=== PATIENT | male | born 1930 | race Caucasian/White ===

== ENCOUNTER 2016-08-06 16:14 | Emergency (ER) | payer OTHER ==
[~2016-08-06] VITALS: Ht 167.6 cm; Wt 56.0 kg
[2016-08-06 16:17] VITALS: BP 168/110; PULSE 78; RESP 14; TEMP 98.4; O2SAT 95
[2016-08-06 16:29] VITALS: BP_SYST 121; BP_DIAS 29; BP_DIAS 59; PULSE 68; O2SAT 95
[2016-08-06] MEDS ORDERED: AMLO5TAB2 PO (16:48)
[2016-08-06] MEDS ORDERED: PRED50 PO (16:48)
--- NOTE | 2016-08-06 16:56 | PD ---
HPI Chief Complaint: Altered Mental Status Time Seen by Provider: 16:34 Travel History International Travel<30 days: No Contact w/Intl Traveler<30days: No Traveled to known affect area: No History of Present Illness HPI This patient was sent here from his primary physician's office. He says that 6 weeks ago he had some lightheadedness. Coupled with recent thrombocytopenia he had a brain CT that was done somewhere in [place]. He says it showed a tiny little abnormal suspect that didn't boot turner to be anything problematic but they requested a routine brain CT in 6 weeks which happened today. Strangely enough, despite no symptoms, he has a acute/subacute subdural hemorrhage measuring up to 12 mm in the parietal region without midline shift. He denies head injury or headache. He takes no blood thinners. Of note though he has had platelet count as low as 15,000 recently. He is on prednisone for that problem followed by shaft sinker. Severity is mild. No alleviating factors. Duration one day PFSH Social History Alcohol Use: No Tobacco Use: No Substance Use: No Allergies-Medications (Allergen,Severity, Reaction): Coded Allergies: No Known Allergies (Unverified , 08/06/16) Reported Meds & Prescriptions Reported Meds & Active Scripts Active Reported Prednisone 50 Mg Tab 60 Mg PO DAILY Amlodipine (Amlodipine Besylate) 5 Mg Tab 5 Mg PO BID Review of Systems General / Constitutional: No: Fever Eyes: No: Visual changes HENT: No: Headaches Cardiovascular: No: Chest Pain or Discomfort Respiratory: No: Shortness of Breath Gastrointestinal: No: Abdominal Pain Genitourinary: No: Dysuria Musculoskeletal: No: Pain Skin: No Rash Neurologic: No: Weakness Psychiatric: No: Depression Endocrine: No: Polydipsia Hematologic/Lymphatic: No: Easy Bruising Physical Exam Narrative GENERAL: Well-nourished, well-developed patient in no apparent distress. SKIN: Focused skin assessment reveals no rash and nodules. Skin is Warm and dry. HEAD: Atraumatic. Normocephalic. EYES: Pupils equal and round. No scleral icterus. No injection or drainage. ENT: No nasal bleeding or discharge. Mucous membranes pink and moist. NECK: Trachea midline. No JVD. CARDIOVASCULAR: Regular rate and rhythm. No murmur appreciated. RESPIRATORY: No accessory muscle use. Clear to auscultation. Breath sounds equal bilaterally. GASTROINTESTINAL: Abdomen soft, non-tender, nondistended. Hepatic and splenic margins not palpable. MUSCULOSKELETAL: No obvious deformities. No clubbing. No cyanosis. No edema. NEUROLOGICAL: Awake and alert. No obvious cranial nerve deficits. Motor grossly within normal limits. Normal speech. PSYCHIATRIC: Appropriate mood and affect; insight and judgment normal. Data Data Last Documented VS Vital Signs Date Time Temp Pulse Resp B/P Pulse Ox O2 Delivery O2 Flow Rate FiO2 08/06/16 18:04 75 128/58 94 Room Air 08/06/16 16:17 98.4 14 Orders Iv Access Insert/Monitor (08/06/16 16:46) Complete Blood Count With Diff (08/06/16 16:46) Basic Metabolic Panel (Bmp) (08/06/16 16:46) Prothrombin Time / Inr (Pt) (08/06/16 16:46) Act Partial Throm Time (Ptt) (08/06/16 16:46) Plush Cutter / Telemetry VEENA.Q8H (08/06/16 16:46) Labs Laboratory Tests Test 08/06/16 16:58 White Blood Count 7.3 TH/MM3 Red Blood Count 3.71 MIL/MM3 Hemoglobin 11.6 GM/DL Hematocrit 35.5 % Mean Corpuscular Volume 95.6 FL Mean Corpuscular Hemoglobin 31.3 PG Mean Corpuscular Hemoglobin 32.7 % Concent Red Cell Distribution Width 14.8 % Platelet Count 136 TH/MM3 Mean Platelet Volume 8.6 FL Neutrophils (%) (Auto) 90.7 % Lymphocytes (%) (Auto) 6.1 % Monocytes (%) (Auto) 3.0 % Eosinophils (%) (Auto) 0.1 % Basophils (%) (Auto) 0.1 % Neutrophils # (Auto) 6.6 TH/MM3 Lymphocytes # (Auto) 0.4 TH/MM3 Monocytes # (Auto) 0.2 TH/MM3 Eosinophils # (Auto) 0.0 TH/MM3 Basophils # (Auto) 0.0 TH/MM3 CBC Comment DIFF FINAL Differential Comment Prothrombin Time 11.9 SEC Prothromb Time International 1.1 RATIO Ratio Activated Partial 24.4 SEC Thromboplast Time Sodium Level 140 MEQ/L Potassium Level 4.5 MEQ/L Chloride Level 106 MEQ/L Carbon Dioxide Level 25.8 MEQ/L Anion Gap 8 MEQ/L Blood Urea Nitrogen 24 MG/DL Creatinine 1.03 MG/DL Estimat Glomerular Filtration 69 ML/MIN Rate Random Glucose 101 MG/DL Calcium Level 8.6 MG/DL MDM Medical Decision Making Medical Screen Exam Complete: Yes Emergency Medical Condition: Yes Medical Record Reviewed: Yes Differential Diagnosis Intracranial hemorrhage, thrombocytopenia, ITP Narrative Course I have reviewed the patient's electronic medical record. I reviewed his brain CT from outpatient done today at [facility] IV placed Extended cardiac monitoring reveals sinus rhythm without ectopy CBC shows a platelet count is 136,000 which is very good for this patient according to him. There are no prior lab studies to compare Metabolic profile is normal Coagulation studies are normal I reviewed the case in detail with Dr. Smith who has reviewed the images. He recommends discharge home and will see the patient in his office for a follow- up. There is nothing surgical to do and the patient is completely asymptomatic. Diagnosis Primary Impression: Subdural hemorrhage Additional Instructions: Call the office of Dr. Smith tomorrow to obtain follow-up visit Avoid aspirin or Motrin or anti-inflammatories Med/Other Pt SpecificInfo: Other Disposition: DISCHARGE HOME Condition: Stable Raj Lucero MD August 06, 2016 16:56
[2016-08-06 17:00] VITALS: BP 124/61; PULSE 68; O2SAT 96
[2016-08-06 17:30] LABS: AUTOMATED NEUTROPHIL # 6.6 TH/MM3 (1.8-7.7); BASOPHIL % 0.1 % (0.0-2.0); EOSINOPHIL % 0.1 % (0.0-4.0); HEMATOCRIT 35.5 % (39.0-51.0); HEMO FLAGS DIFF FINAL; LYMPH % 6.1 % (9.0-44.0); LYMPHOCYTE # 0.4 TH/MM3 (1.0-4.8); MEAN CELL VOLUME 95.6 FL (80.0-100.0); MEAN CORPUSCULAR HEMOGLOBIN 31.3 PG (27.0-34.0); MEAN CORPUSCULAR HGB CONC 32.7 % (32.0-36.0); NEUT % 90.7 % (16.0-70.0); PLATELET COUNT 136 TH/MM3 (150-450); RED BLOOD COUNT 3.71 MIL/MM3 (4.50-5.90); RED CELL DISTRIBUTION WIDTH 14.8 % (11.6-17.2); WHITE BLOOD COUNT 7.3 TH/MM3 (4.0-11.0)
[2016-08-06 17:41] LABS: APTT (PATIENT) 24.4 SEC (24.3-30.1); INTERNATIONAL NORMALIZED RATIO 1.1 RATIO; PROTHROMBIN TIME - PATIENT 11.9 SEC (9.8-11.6)
[2016-08-06 17:46] LABS: BICARBONATE 25.8 MEQ/L (21.0-32.0); POTASSIUM 4.5 MEQ/L (3.5-5.1)
[2016-08-06 18:04] VITALS: BP 128/58; PULSE 75; O2SAT 94
[2016-08-19] MEDS ORDERED: SYMB160A INH (13:29)
[2016-08-19] MEDS ORDERED: PANT40TA3 PO (13:29)
== END 2016-08-06 19:04 | disposition home or self-care (01) ==
LOC: NEPC 16:14
DX: I62.00 Nontraumatic subdural hemorrhage, unspecified (principal); Z86.2 Personal history of diseases of the blood and blood-forming organs and certain disorders involving the immune mechanism
CPT/HCPCS: 80048; 85025; 85610; 85730; 99283